=== PATIENT | female | born 1985 | race Caucasian/White ===

== ENCOUNTER 2018-02-13 15:32 | Emergency (ER) | payer OTHER ==
[2018-02-13] MEDS: ONDANSETRON PF 4 MG/2 ML VIAL. IV (15:45)
[2018-02-13 15:50] LABS: ADD MAN DIFF? NO
[2018-02-13 15:53] LABS: BASO % 1 % (0-3); EOS # 0.1 x10^3/uL (0.0-0.7); EOS % 1 % (0-3); HEMATOCRIT 42.7 % (36.0-47.0); HEMOGLOBIN 14.2 g/dL (12.0-15.5); LYMPH # 1.6 x10^3/uL (1.0-4.8); LYMPH % 18 % (24-48); MEAN CORPUSCULAR HEMOGLOBIN 29 pg (25-35); MEAN CORPUSCULAR HGB CONC 33 g/dL (31-37); MEAN CORPUSCULAR VOLUME 86 fL (79-100); MONO # 0.4 x10^3/uL (0.0-1.1); MONO % 5 % (0-9); NEUT # 6.7 x10^3uL (1.8-7.7); NEUT % 75 % (31-73); PLATELET COUNT 209 x10^3/uL (140-400); RED BLOOD COUNT 4.96 x10^6/uL (3.50-5.40); RED CELL DISTRIBUTION WIDTH 13.7 % (11.5-14.5); WHITE BLOOD COUNT 8.8 x10^3/uL (4.0-11.0)
[2018-02-13 16:05] LABS: ANION GAP 14 (6-14); BLOOD UREA NITROGEN 16 mg/dL (7-20); CALCIUM 8.8 mg/dL (8.5-10.1); CARBON DIOXIDE 22 mmol/L (21-32); CHLORIDE 104 mmol/L (98-107); CREATININE 0.7 mg/dL (0.6-1.0); GFR 96.4; GLUCOSE 106 mg/dL (70-99); POTASSIUM 3.8 mmol/L (3.5-5.1); SODIUM 140 mmol/L (136-145)
[2018-02-13 16:10] LABS: ALBUMIN 4.1 g/dL (3.4-5.0); ALK PHOS 74 U/L (46-116); ALT (SGPT) 38 U/L (14-59); AST (SGOT) 51 U/L (15-37); DIRECT BILIRUBIN 0.1 mg/dL (0.0-0.2); LIPASE 212 U/L (73-393); TOTAL BILIRUBIN 0.6 mg/dL (0.2-1.0); TOTAL PROTEIN 7.9 g/dL (6.4-8.2)
[2018-02-13 16:13] LABS: URINE HCG POC HCG NEGATIVE (Negative)
[2018-02-13 16:14] LABS: TROPONINI < 0.017 ng/mL (0.000-0.055)
[2018-02-13 16:17] LABS: BILIRUBIN,URINE NEGATIVE (NEG); CLARITY,URINE CLEAR; COLOR,URINE YELLOW; GLUCOSE,URINE NEGATIVE (NEG); NITRITE,URINE NEGATIVE (NEG); PH,URINE 5.5; PROTEIN,URINE NEGATIVE (NEG-TRACE); UROBILINOGEN,URINE 0.2 mg/dL (0.2 mg/dL)
[2018-02-13] MEDS: IV NORMAL SALINE 1000ML BAG 1,000 ML IV (16:24)
[2018-02-13] MEDS: MORPHINE SULFATE 4 MG/ML DISP.SYRIN. IV/SQ (16:25)
[2018-02-13] MEDS: 0.9 % SODIUM CHLORIDE 10 ML DISP.SYRIN. IV (16:25)
[2018-02-13 16:30] LABS: BACTERIA,URINE MODERATE /HPF (0-FEW); RBC,URINE 0 /HPF (0-2); SQUAMOUS EPITHELIAL CELL,UR MOD /LPF
[2018-02-13 16:31] LABS: CREATINE KINASE 129 U/L (26-192)
[2018-02-13 16:37] LABS: CKMB MASS < 0.5 ng/mL (0.0-3.6)
== END 2018-02-13 17:08 | disposition home or self-care (01) ==
LOC: ER 15:32
DX: K80.20 Calculus of gallbladder without cholecystitis without obstruction (principal)
CPT/HCPCS: 36415; 76705; 80048; 80076; 81001; 81025; 82553; 83690; 84484; 85025; 87086; 93005; 96360; 99285-25; J7030